=== PATIENT | female | born 1965 | race African-American/Black ===

== ENCOUNTER 2020-11-15 16:07 | Emergency (ER) | payer OTHER, SELFPAY ==
--- NOTE | ~2020-11-15 | XR_ITS ---
EXAMINATION: XR chest 1V portable 11/15/2020 16:53 INDICATION: Fever. Covid. PROCEDURE: AP portable chest COMPARISON: 11/07/2013 FINDINGS: The lungs are clear. The cardiomediastinal silhouette is within normal limits. There are no pleural effusions. There is no pneumothorax suspected. IMPRESSION: 1: NO ACUTE CARDIOPULMONARY DISEASE. Reviewed, dictated and finalized at location A. EMENT CLERKS MANAGER
--- NOTE | 2020-11-15 16:14 | ED.FEVER ---
HPI - Fever General Chief Complaint: Fever Stated Complaint: covid +, I have a fever Time Seen by Provider: 11/15/20 16:14 Source: patient Mode of arrival: ambulatory Limitations: no limitations History of Present Illness HPI Narrative: The patient is a 55 yo female who presents for evaluation of fever in the setting of COVID. Patient reportedly has had a fever of 101 202 Fahrenheit over the past 4 days. Patient was diagnosed with Covid on 11/11. 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 Patient denies severe cough, denies shortness of breath. She denies chest pain. She denies nausea, vomiting or diarrhea. She states she only feels unwell when she has a fever and that her fever goes away when she takes Tylenol and ibuprofen. Patient states she came to the ER because she has been having recurrent fever over the past 4 days. Related Data Allergies Allergy/AdvReac Type Severity Reaction Status Date / Time No Known Allergies Allergy Verified 11/15/20 16:18 Review of Systems Review of Systems: Narrative: CONSTITUTIONAL: Reports fever and chills EYES: Denies visual changes, redness, or discharge. ENT: Denies rhinorrhea, congestion, sore throat, or otalgia. CARDIOVASCULAR: Denies chest pain, palpitations, or edema. RESPIRATORY: Mild dry cough GASTROINTESTINAL: Denies abdominal pain, nausea, vomiting, or diarrhea. GENITOURINARY: Denies dysuria or hematuria. SKIN: Denies rash or itching. MUSCULOSKELETAL: Denies back pain, joint pain, or myalgia. NEUROLOGIC: Denies headache, numbness, or weakness. 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 EYES: PERRLA and EOMI. ENT: Nares clear, no rhinorrhea or epistaxis. Mucous membranes moist. NECK: Supple. CHEST: No respiratory distress, breathing even and non labored HEART: Mildly tachycardic rate, sinus rhythm ABDOMEN:Non distended, non tender EXTREMITIES: Normal range of motion. No edema. SKIN: Warm, dry, no rash. NEURO:No focal deficits. Alert and oriented x3 Course Vital Signs Vital signs: Vital Signs Temperature 37.4 C 11/15/20 16:16 Pulse Rate 109 H 11/15/20 16:16 Respiratory Rate 16 11/15/20 16:16 Blood Pressure 171/90 H 11/15/20 16:16 Pulse Oximetry 99 11/15/20 16:16 Temperature 37.4 C 11/15/20 16:16 Pulse Rate 109 H 11/15/20 16:16 Respiratory Rate 18 11/15/20 16:57 Blood Pressure 171/90 H 11/15/20 16:16 Pulse Oximetry 98 11/15/20 16:57 MDM - Fever MDM Narrative Medical decision making narrative: Patient presented to the emergency department for the evaluation of fever in the setting of recently diagnosed Covid infection. Patient is denying any chest pain, shortness of breath, dysuria, abdominal pain. She is well-appearing with stable vital signs. Her oxygenation is appropriate. Patient is not requiring any oxygen via nasal cannula. She is not vomiting. Laboratory results are reassuring as is her chest x-ray. I explained the fever as part of this disease process and may last for 1 to 2 weeks or possibly longer. Patient was given a work note advised to continue Tylenol and ibuprofen and given return. Differential Diagnosis Differential diagnosis: Likely fever of unknown origin, community acquired pneumonia, viral infection and influenza Lab Data Attestation: I reviewed the pat
[2020-11-15 16:16] VITALS: BP 171/90; PULSE 109; RESP 16; TEMP 37.4; O2SAT 99
[2020-11-15] MEDS: SODIUM CHLORIDE 0.9% IV 500 ML 999 ML IV CONT (16:37)
[2020-11-15] MEDS: ACETAMINOPHEN 500 MG TABLET 1000 MG PO (16:38)
[2020-11-15 16:44] LABS: Basophils Percent Auto 0.2 % (0.2-1.2); Eosinophils Percent Auto 0.2 % (0-4.4); Hemoglobin 11.7 g/dL (12.0-15.0); Immature Granulocyte Absolute 0.02 K/mm3 (0.00-0.031); Immature Granulocyte Percent A 0.4 % (0-0.5); Lymphocytes Absolute Auto 0.93 K/mm3 (0.9-3.2); Lymphocytes Percent Auto 20.9 % (18.3-44.2); Mean Corpuscular HGB Conc 33.4 g/dl (32-36); Mean Corpuscular Hemoglobin 29.8 pg (26-34); Mean Corpuscular Volume 89.1 fl (80-100); Mean Platelet Volume 10.9 fl (7.4-10.4); Monocytes Absolute Auto 0.2 K/mm3 (0.1-0.6); Monocytes Percent Auto 4.9 % (2.6-8.5); Neutrophils Absolute Auto 3.3 K/mm3 (1.3-6.7); Neutrophils Percent Auto 73.4 % (45.5-73.1); Platelet Count Result 205 k/mm3 (150-375); Red Blood Count 3.93 M/mm3 (4.2-5.4); Red Cell Distribution Width 12.8 % (11.5-14.5); White Blood Count 4.5 K/mm3 (4.5-10.0)
[2020-11-15 16:57] VITALS: RESP 18; O2SAT 98
--- NOTE | 2020-11-15 16:58 | PC.NURSE ---
REPORT TO COLEEN TATUM AT THIS TIME SHE HAS ASSUMED PT CARE.
[2020-11-15 17:01] LABS: Alanine Aminotransferase 35 U/L (4-35); Albumin Level 4.2 g/dL (3.5-5.1); Alkaline Phosphatase 75 U/L (38-126); Anion Gap 8 mmol/L (8-16); Aspartate Amino Transferase 46 U/L (14-36); Bilirubin,Total 0.3 mg/dL (0.2-1.3); Blood Urea Nitrogen 12 mg/dL (7-17); Calcium 8.8 mg/dL (8.4-10.2); Carbon Dioxide 28 mmol/L (22-30); Chloride 102 mmol/L (98-107); Estimated CRCL calculation 68 ml/min; Estimated Glomerular Filt Rate > 60; Glucose 117 mg/dL (65-105); Sodium 138 mmol/L (137-145)
[2020-11-15 17:28] LABS: CRP 2.4 mg/dL (<1.0)
[2020-11-15 17:29] VITALS: BP 136/72; PULSE 99; RESP 18; O2SAT 100
== END 2020-11-15 17:30 | disposition home or self-care (01) ==
PROVIDERS: Emergency Provider Emergency Medicine
DX: U07.1 COVID-19 (principal); R50.9 Fever, unspecified
CPT/HCPCS: 36415; 71045; 80053; 85025; 86140; 96360; 99283; A9270; J7040

== ENCOUNTER 2023-05-25 14:26 | Emergency (ER) | payer BC, SELFPAY ==
[2023-05-25 14:37] VITALS: BP 158/83; PULSE 74; RESP 16; TEMP 36.4; O2SAT 100
--- NOTE | 2023-05-25 15:12 | ED.FEMALEGU ---
HPI - Female Genitourinary General Chief complaint: Urogenital-Female Stated complaint: UTI Time Seen by Provider: 05/25/23 15:05 Source: patient, RN notes reviewed and old records reviewed Mode of arrival: ambulatory Limitations: no limitations History of Present Illness HPI Narrative: 57 year old female who presents to [facility] with complaints of frequency and urgency of urination with some right flank pain and also some pain to her right side for the past 3 days. Patient reports that her urine has been a little darker that usual denies any visual hematuria. Patient denies any burning or pain with urination, denies any perineal pressure or any vaginal discharge. Patient reports no known fevers,chills or sweats, denies any nausea,vomiting or diarrhea. She denies any concern for STD exposure. MD elicited complaint: UTI (symptoms), flank pain and other (right mid lateral abdominal discomfort) Onset (ago): day(s) (3) Related Data Allergies Allergy/AdvReac Type Severity Reaction Status Date / Time No Known Allergies Allergy Verified 05/25/23 14:36 Review of Systems Review of Systems: CONSTITUTIONAL: Denies fever, chills, or sweats. CARDIOVASCULAR: Denies chest pain, palpitations, or edema. RESPIRATORY: Denies cough or dyspnea. GASTROINTESTINAL: Denies abdominal pain, nausea, vomiting, or diarrhea. GENITOURINARY: Reports no year for year old which she dysuria, frequency, urgency.reports some right flank pain no visible hematuria. SKIN: Denies rash or itching. MUSCULOSKELETAL: Denies back pain or myalgia. CVA tenderness NEUROLOGIC: Denies headache All systems reviewed & are unremarkable except as noted in HPI and below [facility] Past Medical History Medical History (Updated 05/27/23 @ 07:41 by Fátima Rodriguez NP) Gluteal abscess Sepsis Surgical History Surgical History (Updated 05/27/23 @ 07:35 by Fátima Rodriguez NP) History of appendectomy did not have removed only drained infection Previous section Family History Family History (Updated 05/27/23 @ 07:35 by Fátima Rodriguez NP) Other Hypertension Social History Social History (Updated 11/15/20 @ 16:57 by Fátima Rich MD) Smoking status: Never smoker Alcohol intake: never Substance use: never 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 There is no relevant family history pertinent to the presenting complaint Exam Narrative: GENERAL: Well-appearing, well-nourished, and in no acute distress. HEAD: Normocephalic, atraumatic. NECK: Supple.no lymphadenopathy CHEST: Clear to auscultation. No respiratory distress.SAO2 100% on room air HEART: Regular rate and rhythm. No murmur heard. Normal peripheral pulses. ABDOMEN: Soft, tender right lateral mid lower abdomen, nondistended, normal active bowel sounds. Right CVA tenderness EXTREMITIES: Normal range of motion. No edema. SKIN: Warm, dry, no rash. NEURO: No focal deficits. Alert and oriented x3. Course Course Emergency Course: Patient is aware of diagnosis, understands and agrees to treatment plan.? Anticipatory guidance given.? Patient agrees to follow-up as directed and is aware of reasons to seek care at the emergency department. Portions of this record may have been created with voice recognition software Level of Care: Express Care Visit Vital Signs Vital signs: Vital Signs Temperature 36.4 C 05/25/23 14:37 Pulse Rate 74 05/25/23 14:37 Respiratory Rate 16 05/25/23 14:37 Blood Pressure 158/83 H 05/25/23 14:37 Pulse Oximetry 100 05/25/23 14:37 Oxygen Delivery Room Air 05/25/23 14:37 Temperature 36.4 C 05/25/23 14:37 Pulse Rate 74 05/25/23 14:37 Respiratory Rate 16 05/25/23 14:37 Blood Pressure 158/83 H 05/25/23 14:37 Pulse Oximetr
== END 2023-05-25 15:45 | disposition home or self-care (01) ==
PROVIDERS: Emergency Provider Registered Nurse
DX: N39.0 Urinary tract infection, site not specified (principal)
CPT/HCPCS: 81003; 87086; 99213; G0463

== ENCOUNTER 2025-04-19 15:29 | Emergency (ER) | payer BC, SELFPAY ==
--- NOTE | 2025-04-19 15:32 | ED.URI ---
HPI - URI/Sore Throat General Chief Complaint: Upper Respiratory Infection Stated Complaint: Cough Time Seen by Provider: 04/19/25 15:37 Source: patient, RN notes reviewed and old records reviewed Mode of arrival: ambulatory Limitations: no limitations History of Present Illness HPI Narrative: 59-year-old female presents to the [facility] with complaints of 4 day history of a cough and nasal drainage. Denies any other symptoms. Has tried a dose of Robitussin and a dose of [place] with no relief. Patient is aware has a history of hypertension but does not take medications for it. Patient educated Onset (ago): day(s) (4) Treatments prior to arrival: cold medicine Related Data Allergies Allergy/AdvReac Type Severity Reaction Status Date / Time No Known Allergies Allergy Verified 04/19/25 15:45 Review of Systems Review of Systems: All systems reviewed & are unremarkable except as noted in HPI and below Constitutional: Constitutional: Reports no additional constitutional complaints ENT: Reports as per HPI Cardiovascular: Cardiovascular: Reports no additional cardiovascular complaints, Denies chest pain and Denies dyspnea Respiratory: Respiratory: Reports as per HPI, Denies chest congestion, Reports cough and Denies dyspnea Musculoskeletal: Musculoskeletal: Reports no additional musculoskeletal complaints Integumentary/Breasts: Skin/Breast: Reports system reviewed and no additional complaints, except as docu PMFSH Past Medical History Medical History Sepsis Gluteal abscess Surgical History Surgical History Previous section History of appendectomy did not have removed only drained infection Family History Family History Other Hypertension Social History Social History Smoking status: Never smoker Alcohol intake: never Substance use: never Occupation/Education: occupation 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 There is no relevant family history pertinent to the patient complaint. Exam Const: General: cooperative, healthy appearing, comfortable, no acute distress, well developed, alert and well nourished Nutritional Appearance: well nourished Orientation/consciousness: patient oriented x3 Limitations: no limitations HENMT: Head: normal to inspection Ears: hearing grossly normal bilaterally, external ears normal, TM's normal bilaterally, EAC's normal, mastoids normal and no periauricular adenopathy Mouth: Yes Normal oral and palatal mucosa present, Yes lip normal, Yes tongue normal and Yes moist mucous membranes Throat: uvula midline, posterior oropharynx abnormal cobblestoning; no edema and no erythema, postnasal drainage and no uvular edema Eyes: General: appearance normal, both eyes and all related structures Alignment and Position: alignment normal Neck: Neck: normal visual inspection, full ROM, no lymphadenopathy and no meningeal signs Chest: Chest palpation & inspection: normal inspection of the chest Resp: Effort & Inspection: normal respiratory effort and able to speak in complete sentences Auscultation: clear to auscultation bilaterally, no crackles, no rales, no rhonchi and no wheezes Cardio: Rate: regular rate Skin: General skin exam: normal color and no rashes or lesions noted Neuro: General: patient oriented x3, gait normal, moves all extremities and no meningeal signs Cognition (Neuro): normal cognition Speech: normal speech Gait exam (Neuro): Normal gait present Extrem: General: normal to inspection, full ROM, capillary refill normal and normal gait Psych: Appearance: grossly normal and well kempt Mental Status: mental status grossly normal Speech and movement: Normal speech and movement present and Clear speech present Affect: normal affect Attitude: cooperative Course Course Level of Care: Express Care Visit Vital Signs Vital signs: Vital Signs Temperature 97.8 F 04/19/25 15:35 Pulse Rate 95 04/19/25 15:35 Respiratory Rate 16 04/19/25 15:35 Blood Pressure 186/88 H 04/19/25 15:35 Pulse Oximetry 100 04/19/25 15:35 Oxygen Delivery Room Air 04/19/25 15:35 Temperature 97.8 F 04/19/25 15:35 Pulse Rate 95 04/19/25 15:35 Respiratory Rate 16 04/19/25 15:35 Blood Pressure 186/88 H 04/19/25 15:35 Pulse Oximetry 100 04/19/25 15:35 Oxygen Delivery Room Air 04/19/25 15:35 Reviewed MDM - URI/Sore Throat MDM Narrative Medical decision making narrative: Patient sitting in exam. Patient is nontoxic, vitals stable except blood pressure is elevated. Patient presents with cough x4 days, postnasal drainage. Patient with postnasal drainage, cobblestoning, no acute findings otherwise Patient appropriate for outpatient treatment with close follow-up Discharge instructions reviewed with patient, as well as provided in writing per nursing staff. The instructions also include specific and strict return/GO TO THE ER as well as f/u information. All questions have been answered, and the patient deny any further questions with discharge and discharge plan. Some parts of this dictation were generated by voice recognition software and may contain typographical and/or grammatical inaccuracies. Differential Diagnosis Differential diagnosis: Likely upper respiratory infection, otitis media, sinusitis, viral infection, bronchitis, influenza and pharyngitis Critical Care Time Critical Care Time Critical Care Time: No Discharge Plan Discharge Clinical Impression: Acute cough, PND (post-nasal drip) Patient Disposition: Home Condition: Stable Instructions: Antibiotic Form, Acute Cough (ED), Postnasal Drip (DC) Additional Instructions: Today your blood pressure was 186/88. Please follow-up with your primary care provider within the next 2 weeks to have this rechecked. Untreated or undertreated blood pressure currently to more serious health issues such as but not limited to heart attacks, stroke, kidney failure Typically viral infections last 7-10 days, can linger for couple of weeks. It is very important to treat your symptoms. Drink plenty of water, Gatorade, Pedialyte, ice pops or Jell-O. -Alternate Tylenol and Motrin per package directions for fever or pain. You can alternate every 4 hours -Antihistamine medication such as Zyrtec/Claritin/Kelsey during the day can help improve symptoms. -doing daily nasal irrigations can help relieve pressure your sinuses. Things like a Neti pot -Use Flonase twice a day for 5 days then daily to help reduce the inflammation and dry up your sinuses. -You can also use Mucinex. Be sure to drink plenty of water with this medication at least 8 ounces with every dose and it is important to drink 8 to 10 glasses of water per day. Water is a natural decongestant -Eat and drink things that are easy to swallow, like tea or soup, or popsicles. -Oral rinses such as: Salt water gargles and/or may use topical anesthetic (eg. Chloraseptic spray) or lozenges to relieve dryness or throat pain). -Frequent hand washing or hand photovoltaic fabrication technician is one of the best ways to prevent spread of infection. -Using a vaporizer or humidifier at night will also help thin secretions and help with coughing up phlegm. -Follow up with primary care provider in 7-10 days if condition is not improving - For new or worsening symptoms go directly to the nearest ER Patient Language: Belizean Prescriptions: No Action tamsulosin [Flomax] 0.4 mg capsule 0.4 mg PO HS Qty: 14 0RF Follow-up/Referrals: PHYSICIAN,MANAGER EMPLOYEE BENEFITS [Primary Care Provider] - Stand Alone Forms: Work/School Release IP Time of Disposition: 15:46
[2025-04-19 15:35] VITALS: BP 186/88; PULSE 95; RESP 16; TEMP 36.6; O2SAT 100
== END 2025-04-19 15:52 | disposition home or self-care (01) ==
PROVIDERS: Emergency Provider Nurse Practitioner
DX: R05.1 Acute cough (principal); R09.82 Postnasal drip
CPT/HCPCS: 99211; G0463

== ENCOUNTER 2025-06-09 14:25 | Emergency (ER) | payer BC, SELFPAY ==
--- NOTE | ~2025-06-09 | XR_ITS ---
XR hip RT 2V w AP pelvis Ordering provider: Parvez Son APRN History: . POSTERIOR hip pain-fall with pain radiating down leg . Comparison: None. FINDINGS: BONES: No acute fracture or dislocation. HIP JOINT SPACES: Bilateral moderate narrowing. SACROILIAC JOINT SPACES/LUMBAR SPINE: The sacroiliac joint spaces are normal. Mild degenerative bedolla es of the visualized lower lumbar spine. PUBIC SYMPHYSIS: Normal. SOFT TISSUES: Normal. IMPRESSION: No acute osseous abnormality pelvis and right hip. Bilateral moderate osteoarthritic changes. Reviewed, dictated and finalized at location A.
[2025-06-09 14:28] VITALS: BP 173/83; PULSE 70; RESP 16; TEMP 35.6; O2SAT 100
--- NOTE | 2025-06-09 14:34 | ED_ITS ---
HPI - Fall General Chief Complaint: Extremity Injury, Lower Stated Complaint: FALL Time Seen by Provider: 06/09/25 14:30 Source: patient Mode of arrival: ambulatory Limitations: no limitations History of Present Illness HPI Narrative: Stacey is a 59-year-old female patient presenting to the clinic today with complaints of a ground level fall that occurred on Wednesday. Reporting right posterior hip pain/posterior thigh pain. States pain is worse with movement and sitting. Rates pain 2/10 currently. Has been taking Aleve and applying icy Hot. Reports now that the pain is radiating down her leg with movement. Denies any saddle anesthesia or loss of bowel or bladder. Denies hitting her head or any other injury. Is able to walk with minimal pain as long as she walks slowly. Related Data Allergies Allergy/AdvReac Type Severity Reaction Status Date / Time No Known Allergies Allergy Verified 06/09/25 14:29 Review of Systems Review of Systems: Pertinent positives per HPI. Patient denies any fever, chills, rash, headache, visual changes, dizziness, cough, shortness of breath, chest pain, palpitations, nausea, vomiting, diarrhea, constipation, abdominal pain, or any urinary issues. 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 There is no relevant family history pertinent to the patient complaint. Exam Narrative: General: Well-developed, well nourished, in no apparent distress Head: Normocephalic, atraumatic. Cardio: Regular rate and rhythm, s1 and s2 normal, no murmur appreciated. Resp: Clear to auscultation bilaterally, no rhonchi, rales, wheezing or rubs. Musculoskeletal: No deformity,tender to palpation over the posterior mid glut and proximal posterior hamstring, pain radiating down into the lower extremity with movement, grossly normal range of motion, muscle strength strong and equal, peripheral pulse strong, no edema, no cyanosis, slow steady gait and station Course Course Emergency Course: Portions of this record may have been created with voice recognition software. Level of Care: Express Care Visit Vital Signs Vital signs: Vital Signs Temperature 35.6 C L 06/09/25 14:28 Pulse Rate 70 06/09/25 14:28 Respiratory Rate 16 06/09/25 14:28 Blood Pressure 173/83 H 06/09/25 14:28 Pulse Oximetry 100 06/09/25 14:28 Oxygen Delivery Room Air 06/09/25 14:28 Temperature 35.6 C L 06/09/25 14:28 Pulse Rate 70 06/09/25 14:28 Respiratory Rate 16 06/09/25 14:28 Blood Pressure 173/83 H 06/09/25 14:28 Pulse Oximetry 100 06/09/25 14:28 Oxygen Delivery Room Air 06/09/25 14:28 Vital signs reviewed MDM - Fall MDM Narrative Medical decision making narrative: At the time of visit patient is resting comfortably on the exam table. Patient appears to be nontoxic. Patient fell last Wednesday and injured her right posterior hip and is having pain over her proximal right hamstring. Pain is radiating down to the right leg. History of sciatica in the past. Denies any saddle anesthesia or loss of bowel or bladder. States the pain is manageable and rates the pain a currently a 2/10. Has been taking Aleve and applying icy Hot. Feels as though she has a knotted area to her right posterior glute. Diagnostics: Right hip x-ray was negative for any sign of fracture or malalignment. Does show moderate bilateral hip osteoarthritis Plan: I suspect patient has a right hip contusion/acute pain with probable strain of the hamstring muscle. Prescription for Medrol Dosepak and Flexeril was sent to the pharmacy. Work note was given for 2 days. Supportive measures were discussed with the patient and they voiced understanding discharge instructions and agrees to treatment plan. Return precautions reviewed Differential Diagnosis Differential diagnosis: Likely other (Hip fracture, hip sprain, hip contusion, muscle strain, low back pain) Imaging Data Radiologist's impression: ITS Impressions Hip/Pelvis X-Ray 06/09/25 15:16 IMPRESSION: No acute osseous abnormality pelvis and right hip. Bilateral moderate osteoarthritic changes. Discharge Plan Discharge Clinical Impression: Posterior pain of right hip Right hamstring muscle strain Qualifiers: Encounter type: initial encounter Qualified Code(s): S76.311A - Strain of muscle, fascia and tendon of the posterior muscle group at thigh level, right thigh, initial encounter Patient Disposition: Home Condition: Stable Instructions: Antibiotic Form, Muscle Strain (ED), Hip Pain (ED) Additional Instructions: Take any prescription medication only as prescribed-Medrol Dosepak and cyclobenzaprine Be mindful of sedation precautions given to you if taking a muscle relaxer. May use heat or ice to the affected area Consider massage or chiropractor adjustment if this was discussed with provider May use blue emu, lidocaine patches, or asper cream to affected area- do not apply heat or ice directly over cream- can cause burn. Complete appropriate back stretching exercises. Follow up with your PCP in 3-5 days if symptom persist. Patient Language: Turkish Prescriptions: New cyclobenzaprine 10 mg tablet 10 mg PO Q8H PRN (Reason: muscle spasm) 7 Days Qty: 21 0RF methylprednisolone [Medrol (Sacha)] 4 mg tablets,dose pack See Rx Instructions PO .COMPLEX Qty: 21 0RF Rx Instructions: orally per package directions Follow-up/Referrals: PHYSICIAN,ELECTRIC MOTOR REPAIRMAN [Primary Care Provider] - Stand Alone Forms: Work/School Release IP Time of Disposition: 15:32 Quality NIHSS Nursing Documentation ED NIHSS nursing documentation: reviewed/agree
== END 2025-06-09 15:41 | disposition home or self-care (01) ==
PROVIDERS: Emergency Provider Nurse Practitioner Family
DX: M25.551 Pain in right hip (principal); S76.311A Strain of muscle, fascia and tendon of the posterior muscle group at thigh level, right thigh, initial encounter; W19.XXXA Unspecified fall, initial encounter
CPT/HCPCS: 73502; 99213; G0463